=== PATIENT | male | born 1965 | race Caucasian/White ===

== ENCOUNTER → 2023-12-10 11:24 | Outpatient (REF) | payer BC, SELFPAY | LOC: HWRAD 11:24 | PROVIDERS: ATTENDING PHYSICIAN Surgery; FAMILY PHYSICIAN Internal Medicine | DX: K40.90 Unilateral inguinal hernia, without obstruction or gangrene, not specified as recurrent (principal) | CPT/HCPCS: 74177; Q9967 ==

== ENCOUNTER 2025-04-17 05:53 | Day surgery (SDC) | payer BC, SELFPAY ==
[2025-04-06 14:20] VITALS: BMI 26.3
[2025-04-17] VITALS (11 sets, daily range): BP systolic 112–135; BP diastolic 57–84; BMI 26.3
[2025-04-17] MEDS: TYLENOL 1000 MG PO (06:27)
[2025-04-17] MEDS: HEPARIN 5000 UNITS SC (06:27)
--- NOTE | 2025-04-17 06:48 | PTCARENOTE ---
Dr. Segal aware that patient had scant blood in the toilet this am prior to surgery. Patient states that he had hemorrhoid surgery in the past and has had blood in his stool in the past. Patient told to follow up with his primary doctor. No further
orders.
[2025-04-17] MEDS: NORMOSOL-R/PLASMALYTE-A 1000 IV (06:56)
--- NOTE | 2025-04-17 08:51 | OR.RPT ---
Operative Report
Operative Report
Primary Surgeon: Jose Juan
Pre-op Diagnosis: Bilateral inguinal hernias
Post-op Diagnosis: Same
Procedure Performed: Robot assisted laparoscopic repair bilateral inguinal hernias
Anesthesia Type: GETA
Specimen / Cultures: None
Estimated Blood Loss: 2cc
Complications: None immediate
Operative Findings: Indirect defects, moderate cord lipomas bilaterally, B/L MID XL 3D Max
Date of Surgery: 04/17/25
Indications: This 59M developed symptomatic right inguinal hernia. On exam a left inguinal hernia was noted and he requested we repair both hernias today. Robot assisted laparoscopic repair was elected
Description of procedure:� The patient was taken to the operating room and positioned into supine position. The patient�s abdomen was prepped and draped in standard sterile fashion. A time-out was completed verifying correct patient, procedure,
site, positioning, and implants and special equipment prior to beginning this procedure. The groin hernias were manually reduced.
A stab incision was made in the left upper quadrant, a Veress needle was inserted and proper position was confirmed by aspiration and saline drop test. Following this, pneumoperitoneum was created with insufflation of carbon dioxide to 12 mmHg. Then
a 8mm robotic trocar was inserted above and to the left of the umbilicus. A laparoscope was inserted and the area of initial trocar entry and Veress needle placement were both inspected and no injuries were found. Two 8mm trocars were then placed
lateral to the rectus sheath under direct visualization.
Both inguinal regions were inspected and the median umbilical ligament, medial umbilical ligament, and lateral umbilical fold were identified. Attention was turned to the right groin. The peritoneum was incised transversely above the defect and a
flap was developed in the caudad direction. Alexis�s ligament was identified ultimately dissected to its junction with the iliac vein and the space of Retzius was developed bluntly. The dissection was continued inferiorly to the iliopubic tract,
with care taken to avoid injury to the femoral branch of the genitofemoral nerve and the lateral femoral cutaneous nerve. The cord structures were parietalized.
The direct space was inspected and no hernia defect was identified. The femoral space was inspected and no defect was identified. The indirect space was inspected and a defect was identified and reduced by gentle traction. The canal was inspected
and a moderate cord lipoma was identified and reduced.
Attention was turned to the left groin and the above process was repeated with similar findings.
Extra large right and left MID 3D max mesh was passed through a trocar. The mesh was placed into the preperitoneal space and moved into position to lay flat and completely cover the direct, indirect, and femoral spaces with overlap at the midline.
The mesh was secured into place using 2-0 vicryl suture to Alexis�s ligament medially and laterally. Care was taken to avoid the inferolateral triangles containing the iliac vessels and genital nerves. The peritoneal flap was closed over the mesh
and secured with 2-0 monocryl stratafix suture in similar positions of safety. A small flap rent on the right was closed with 2-0 vicryl suture. A 14g angiocath was used to decompress the preperitoneal space revealing good seal and all mesh in good
position without folding or curling.
After ensuring adequate hemostasis, the trocars were removed and the pneumoperitoneum allowed to escape. The trocar incisions were closed at the skin level using 4-0 monocryl and topical skin adhesive. All counts were correct and the patient
tolerated the procedure well and was taken to the postanesthesia care unit in stable condition.
[2025-04-17] MEDS: DILAUDID 0.5 MG IV (09:11)
== END 2025-04-17 11:18 | disposition home or self-care (01) ==
LOC: SDS 05:53
PROVIDERS: ATTENDING PHYSICIAN Surgery; FAMILY PHYSICIAN Internal Medicine
DX: K40.20 Bilateral inguinal hernia, without obstruction or gangrene, not specified as recurrent (principal)
CPT/HCPCS: 49650; 36415; 93005; C1781